=== PATIENT | male | born 2000 | race Caucasian/White ===

== ENCOUNTER → 2022-06-08 13:15 | Outpatient (CLI) | payer BC, SELFPAY ==
--- NOTE | ~2022-06-08 | XR_ITS ---
XR chest 2V DATE: 06/08/2022 13:46 INDICATION: Cough, shortness of breath, fever for 5 days. Covid-positive. TECHNIQUE: PA and lateral views COMPARISON: 01/20/2012 two-view chest FINDINGS: Normal heart size. No hilar or mediastinal enlargement. No pulmonary infiltrate or consolid ation, pleural effusion or pulmonary vascular congestion or pneumothorax is detected. IMPRESSION: No active cardiopulmonary disease Reviewed, dictated and finalized at location A. [employer]
== END ==
PROVIDERS: PCP Pediatrics; Visit Provider Pediatrics
DX: R05.9 Cough, unspecified (principal)
CPT/HCPCS: 71046